=== PATIENT | male | born 1975 | race African-American/Black ===

== ENCOUNTER 2019-04-08 03:03 | Emergency (ER) | payer SELFPAY ==
[2019-04-08] MEDS ORDERED: NA CHLORIDE 0.9% 1,000 ML ONE (03:25)
[2019-04-08] MEDS ORDERED: ONDANSETRON 4 MG/2 ML VIAL ONE (03:25)
[2019-04-08] MEDS ORDERED: ALBUTEROL 2.5 MG/3 ML NEB SOL ONE (03:25)
[2019-04-08 04:05] LABS: Arterial Blood Carboxyhemoglob 4.1 % (0-1.5); Blood Gas Oxyhemoglobin 89.5 % (94-97); Blood O2 Saturation 94.3 % (92-98.5)
[2019-04-08 04:12] LABS: Absolute Lymphocytes (CBC) 4.8 K/uL (0.7-4.9); Basophils % 0.8 % (0-1.3); Hematocrit 39.4 % (39.6-49.0); Lymphocytes % 51.5 % (15.3-44.8); MPV 9.7 fL (7.6-11.3); RBC Red Blood Cell Count 4.08 M/uL (4.33-5.43)
[2019-04-08 04:19] LABS: BUN Blood Urea Nitrogen 19 mg/dL (7-18); Bicarbonate 24 mmol/L (21-32); Glucose Level 107 mg/dL (74-106); Potassium 3.9 mmol/L (3.5-5.1); Sodium Level 142 mmol/L (136-145)
[2019-04-08 04:53] LABS: Blood Morphology Comment NOT SEEN (NOT SEEN); Platelet Estimate ADEQ
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
--- NOTE | 2019-04-08 07:58 | RAD REPORT ---
EXAM DESCRIPTION: Ena Single View04/08/2019 3:34 am CLINICAL HISTORY: Cough COMPARISON: none FINDINGS: The lungs appear clear of acute infiltrate. The heart is normal size IMPRESSION: No acute abnormalities displayed
--- NOTE | 2019-04-09 15:53 | EKG ---
Test Date: 2019-04-08 Test Time: 03:04:38 Concrete Handler: ANTOINE MEASUREMENT RESULTS: Intervals: Rate: 98 KS: 134 QRSD: 74 QT: 310 QTc: 395 [place]: P: 68 KS: 134 QRS: 46 T: 51 INTERPRETIVE STATEMENTS: Normal sinus rhythm ST elevation, probably due to early repolarization Borderline ECG No previous ECG available for comparison Electronically Signed On 04-09-19 15:52:35 CDT by Shane Geller
== END 2019-04-08 05:34 | disposition home or self-care (01) ==
LOC: ER 03:03
DX: T58.8X1A Toxic effect of carbon monoxide from other source, accidental (unintentional), initial encounter (principal); Y92.89 Other specified places as the place of occurrence of the external cause; Z72.0 Tobacco use
CPT/HCPCS: 36415; 71045; 80048; 82805; 85025; 93005; 96374; 99284; J2405; J7030

== ENCOUNTER 2020-05-13 12:14 | Emergency (ER) | payer SELFPAY ==
--- NOTE | 2020-05-13 12:32 | EDPHYS ---
Physician Documentation [facility] Name: Saeed Pinzon Age: 44 yrs Sex: Male : 1975 Arrival Date: 05/13/2020 Time: 12:16 Bed 13 Private MD: ED Physician Deepak Shelby HPI: 05/12 12:51 This 44 yrs old Black Male presents to ER via Ambulatory with complaints of Ear pm1 swelling. 12:51 Onset: The symptoms/episode began/occurred 2 day(s) ago. Associated signs and symptoms: pm1 Pertinent positives: earache, Pertinent negatives: fever. Modifying factors: The patient symptoms are alleviated by nothing, the patient symptoms are aggravated by attempting to didi and nothing came out. The patient has not experienced similar symptoms in the past. The patient has not recently seen a physician. Patient presenting to the ER with complaints of left ear swelling. Patient concerned that he might have been bitten by something. His sister tried to express his ear because they thought that there might be some pus in it. No discharge or pus present. Historical: - Allergies: 05/13 12:33 No Known Allergies; ll1 - PMHx: 12:33 Asthma; Heart Murmur; hemorrhoids; Hypertension; ll1 - PSHx: 12:33 None; ll1 - Immunization history:: Flu vaccine is not up to date. - Social history:: Smoking status: Patient reports the use of cigarette tobacco products, denies chronic smoking, but will smoke occasionally, cigars. ROS: 05/12 12:51 Constitutional: Negative for fever, chills, and weight loss, Cardiovascular: Negative pm1 for chest pain, palpitations, and edema, Respiratory: Negative for shortness of breath, cough, wheezing, and pleuritic chest pain, Abdomen/GI: Negative for abdominal pain, nausea, vomiting, diarrhea, and constipation, MS/Extremity: Negative for injury and deformity, Skin: Negative for injury, rash, and discoloration, Neuro: Negative for headache, weakness, numbness, tingling, and seizure. Exam: 12:51 Constitutional: This is a well developed, well nourished patient who is awake, alert, pm1 and in no acute distress. Head/Face: Normocephalic, atraumatic. 12:51 Neck: Trachea midline, no thyromegaly or masses palpated, and no cervical lymphadenopathy. Supple, full range of motion without nuchal rigidity, or vertebral point tenderness. No Meningismus. 12:51 MS/ Extremity: Pulses equal, no cyanosis. Neurovascular intact. Full, normal range of motion. 12:51 ENT: External ear(s): cellulitis, that is minimal, of the pinna of left ear, needle aspiration without any drainage or pus, Ear canal(s): are normal, TM's: are normal, Examination of the other ear shows no obvious abnormality. 12:51 Cardiovascular: Exam negative for acute changes, Rate: normal, Rhythm: regular, Pulses: no pulse deficits are appreciated. 12:51 Respiratory: Exam negative for acute changes, respiratory distress, shortness of breath. 12:51 Neuro: Exam negative for acute changes, Orientation: is normal, Motor: is normal, moves all fours, Gait: is steady, at a normal pace, without difficulty. Vital Signs: 05/13 12:32 BP 127 / 89; Pulse 82; Resp 17; Temp 98.5; Pulse Ox 100% ; Pain 6/10; ll1 MDM: 12:22 Patient medically screened. pm1 12:31 Counseling: I had a detailed discussion with the patient and/or guardian regarding: the pm1 historical points, exam findings, and any diagnostic results supporting the discharge/admit diagnosis, the need for outpatient follow up, to return to the emergency department if symptoms worsen or persist or if there are any questions or concerns that arise at home. 12:56 Data reviewed: vital signs. Data interpreted: Pulse oximetry: on room air is 100 %. pm1 Interpretation:. Administered Medications: 12:45 Drug: Bactrim (160 mg-800 mg (DS) 1 tablet Route: PO; ll1 12:50 Follow up: Response: No adverse reaction; RASS: Alert and Calm (0) ll1 12:45 Drug: Tetanus-Diphtheria Toxoid Adult 0.5 ml {Line Camera Operator: [place]um. Exp: ll1 10/09/2022. Lot #: [id number]. } Route: IM; Site: left deltoid; 12:51 Follow up: Response: No adverse reaction; RASS: Alert and Calm (0) ll1 12:46 Drug: Ibuprofen 600 mg Route: PO; ll1 12:51 Follow up: Response: No adverse reaction; RASS: Alert and Calm (0) ll1 Disposition: 14:56 Co-signature as Attending Physician, Deepak Shelby MD I agree with the assessment and kdr plan of care. Disposition: 05/13/20 12:32 Discharged to Home. Impression: Cellulitis of left external ear. - Condition is Stable. - Discharge Instructions: Cellulitis, Adult. - Prescriptions for Bactrim DS 800- 160 mg Oral Tablet - take 1 tablet by ORAL route every 12 hours for 10 days; 20 tablet. - Medication Reconciliation Form, Thank You Letter, Antibiotic Education, Prescription Opioid Use form. - Follow up: Emergency Department; When: As needed; Reason: Worsening of condition. Follow up: Private Physician; When: 2 - 3 days; Reason: Recheck today's complaints, Continuance of care, Re-evaluation by your physician. - Problem is new. - Symptoms have improved. Signatures: Deepak Shelby MD MD kdr Bill Mcbride NP CHIEF OPERATOR pm1 Kenney Perez RN RN ll1 Corrections: (The following items were deleted from the chart) 12:51 12:32 05/13/2020 12:32 Discharged to Home. Impression: Cellulitis of left external ear. ll1 Condition is Stable. Forms are Medication Reconciliation Form, Thank You Letter, Antibiotic Education, Prescription Opioid Use. Follow up: Emergency Department; When: As needed; Reason: Worsening of condition. Follow up: Private Physician; When: 2 - 3 days; Reason: Recheck today's complaints, Continuance of care, Re-evaluation by your physician. Problem is new. Symptoms have improved. pm1
[2020-05-13] MEDS ORDERED: SMZ./TMP. 800/160 MG TABLET ONE (12:48)
[2020-05-13] MEDS ORDERED: TETANUS & DIPHTHERIA TOX,ADULT 0.5 ML VIAL ONE (12:49)
[2020-05-13] MEDS ORDERED: IBUPROFEN 400 MG TAB ONE (12:49)
--- NOTE | 2020-05-13 12:52 | ER ---
Nurse's Notes [facility] Name: Saeed Pinzon Age: 44 yrs Sex: Male : 1975 Arrival Date: 05/13/2020 Time: 12:16 Bed 13 Private MD: Diagnosis: Cellulitis of left external ear Presentation: 05/13 12:32 Chief complaint: Patient states: Left ear pain and swelling for 3 days. No fever. ll1 Coronavirus screen: Client denies travel out of the [place] in the last 14 days. At this time, the client does not indicate any symptoms associated with coronavirus-19. Ebola Screen: Patient denies travel to an Ebola-affected area in the 21 days before illness onset. Initial Sepsis Screen: Does the patient meet any 2 criteria? No. Patient's initial sepsis screen is negative. Risk Assessment: Do you want to hurt yourself or someone else? Patient reports no desire to harm self or others. Onset of symptoms was May 11, 2020. 12:32 Method Of Arrival: Ambulatory 1 12:32 Acuity: GERSON 4 ll1 12:33 Initial Sepsis Screen: Does the patient have a suspected source of infection? Yes: ll1 Other: left ear pain. Triage Assessment: 12:34 General: Appears in no apparent distress. Behavior is calm, cooperative. Pain: ll1 Complains of pain in L ear Pain currently is 6 out of 10 on a pain scale. Quality of pain is described as aching, Pain began 2-3 days ago. Historical: - Allergies: 12:33 No Known Allergies; ll1 - PMHx: 12:33 Asthma; Heart Murmur; hemorrhoids; Hypertension; ll1 - PSHx: 12:33 None; ll1 - Immunization history:: Flu vaccine is not up to date. - Social history:: Smoking status: Patient reports the use of cigarette tobacco products, denies chronic smoking, but will smoke occasionally, cigars. Screenin:33 Abuse screen: Denies threats or abuse. Nutritional screening: No deficits noted. ll1 Tuberculosis screening: No symptoms or risk factors identified. Fall Risk None identified. Total Roy Fall Scale indicates No Risk (0-24 pts). Vital Signs: 12:32 BP 127 / 89; Pulse 82; Resp 17; Temp 98.5; Pulse Ox 100% ; Pain 6/10; ll1 ED Course: 12:16 Patient arrived in ED. mr 12:22 Bill Mcbride, CRISTINA is PHCP. pm1 12:22 Deepak Shelby MD is Attending Physician. pm1 12:31 Kenney Perez, RN is Primary Nurse. ll1 12:32 Triage completed. ll1 12:32 Arm band placed on Patient placed in an exam room, on a stretcher. ll1 12:33 Patient has correct armband on for positive identification. Bed in low position. Call 1 light in reach. Side rails up X 1. Cardiac monitoring not applicable on this patient. Administered Medications: 12:45 Drug: Bactrim (160 mg-800 mg (DS) 1 tablet Route: PO; 1 12:50 Follow up: Response: No adverse reaction; RASS: Alert and Calm (0) 1 12:45 Drug: Tetanus-Diphtheria Toxoid Adult 0.5 ml {Factory Machine Computer Operator: [place]. Exp: 1 10/09/2022. Lot #: [id number]. } Route: IM; Site: left deltoid; 12:51 Follow up: Response: No adverse reaction; RASS: Alert and Calm (0) 1 12:46 Drug: Ibuprofen 600 mg Route: PO; ll1 12:51 Follow up: Response: No adverse reaction; RASS: Alert and Calm (0) [facility] Outcome: 12:32 Discharge ordered by . pm1 12:51 Patient left the ED. 1 Signatures: Bria Ram mr ReedBill, CRISTINA DIRECTOR RECORDS MANAGEMENT pm1 Kenney Perez, RN RN 1
[2020-05-13] MEDS ORDERED: IBUPROFEN 200 MG TAB PO ONE (12:53)
[2020-05-13 13:03] VITALS: BP 127/89; TEMP 98.5; O2SAT 100
== END 2020-05-13 12:51 | disposition home or self-care (01) ==
LOC: ER 12:14
DX: H60.12 Cellulitis of left external ear (principal); I10 Essential (primary) hypertension; F17.210 Nicotine dependence, cigarettes, uncomplicated; Z23 Encounter for immunization
CPT/HCPCS: 90471; 90714; 99282

== ENCOUNTER 2021-10-09 15:45 | Emergency (ER) | payer SELFPAY ==
--- NOTE | 2021-10-09 18:07 | ER ---
Nurse's Notes [facility] Name: Saeed Pinzon Age: 46 yrs Sex: Male : 1975 Arrival Date: 10/09/2021 Time: 15:53 Bed 15 Private MD: Diagnosis: Hordeolum internum right eye, unspecified eyelid Presentation: 10/09 16:18 Chief complaint: Patient states: he has a bump above his right eye that is causing ap3 pain. Patient reports having similar bumps in the past but they never hurt. Patient states this has been going on for approx 3 weeks. Coronavirus screen: At this time, the client does not indicate any symptoms associated with coronavirus-19. Ebola Screen: No symptoms or risks identified at this time. Mechanism of Injury: closed wound. The patient denies any loss of vision. Initial Sepsis Screen: Does the patient meet any 2 criteria? No. Patient's initial sepsis screen is negative. Does the patient have a suspected source of infection? No. Patient's initial sepsis screen is negative. Risk Assessment: Do you want to hurt yourself or someone else? Patient reports no desire to harm self or others. Onset of symptoms was September 17, 2021. 16:18 Method Of Arrival: Ambulatory ap3 16:18 Acuity: GERSON 4 ap3 Triage Assessment: 16:22 General: Appears in no apparent distress. Behavior is calm, cooperative, appropriate ap3 for age. Pain: Complains of pain in right supraorbital ridge. EENT: Lid(s) swelling noted. Neuro: Level of Consciousness is awake, alert, obeys commands, Oriented to person, place, time, situation, Appropriate for age Moves all extremities. Speech is normal. Cardiovascular: Patient's skin is warm and dry. Respiratory: Airway is patent Respiratory effort is even, unlabored. Historical: - Allergies: 16:21 No Known Allergies; ap3 - Home Meds: 16:21 None [Active]; ap3 - PMHx: 16:21 Asthma; Heart Murmur; hemorrhoids; Hypertension; ap3 - Immunization history:: Client reports having NOT received the Covid vaccine. Last tetanus immunization: up to date Flu vaccine is not up to date. - Social history:: Smoking status: Patient reports the use of cigarette tobacco products, cigars, 3-4 black and milds a day. - Family history:: not pertinent. Screenin:23 Abuse screen: Denies threats or abuse. Nutritional screening: No deficits noted. ap3 Tuberculosis screening: No symptoms or risk factors identified. Fall Risk No fall in past 12 months (0 pts). Assessment: 16:24 EENT: Eyes. ap3 17:10 General: Appears in no apparent distress. comfortable, slender, well groomed, Behavior cb5 is calm, cooperative, appropriate for age. Pain: Complains of pain in right eye and right supraorbital ridge Pain currently is 3 out of 10 on a pain scale. Neuro: No deficits noted. Cardiovascular: No deficits noted. Respiratory: No deficits noted. GI: No deficits noted. : No deficits noted. EENT: Sclera/Cornea pt c/o right eye pain . Derm: No deficits noted. Musculoskeletal: No deficits noted. 18:45 General: pt in a hurry to go home, declined for nurse to take vital signs. . cb5 Vital Signs: 16:18 BP 146 / 78; Pulse 65; Resp 17; Temp 98.8; Pulse Ox 96% ; Weight 72.57 kg; Height 5 ft. ap3 6 in. (167.64 cm); Pain 7/10; 16:18 Body Mass Index 25.82 (72.57 kg, 167.64 cm) ap3 ED Course: 15:53 Patient arrived in ED. am2 16:21 Triage completed. ap3 16:23 Arm band placed on left wrist. ap3 16:58 Joana Peraza MD is Attending Physician. ma2 17:03 Alexandria Gale, ZACH is Primary Nurse. cb5 17:40 Allergy band placed. Call light in reach. Side rails up X 1. cb5 17:40 No provider procedures requiring assistance completed. cb5 18:07 Obinna Ferrer MD is Referral Physician. ma2 Administered Medications: No medications were administered Outcome: 18:06 Discharge ordered by . ma2 18:45 Discharged to home ambulatory. cb5 18:45 Condition: stable 18:45 Discharge instructions given to patient. 18:56 Patient left the ED. cb5 Signatures: Sallie Smiley am2 Joana Peraza MD MD inSallie Lew RN RN ap3 Alexandria Gale, RN RN cb5
--- NOTE | 2021-10-09 18:07 | EDPHYS ---
Physician Documentation [facility] Name: Saeed Pinzon Age: 46 yrs Sex: Male : 1975 Arrival Date: 10/09/2021 Time: 15:53 Bed 15 Private MD: ED Physician Joana Peraza HPI: 10/09 18:03 This 46 yrs old Black Male presents to ER via Ambulatory with complaints of Pump above ma2 right eyelid. 18:03 Onset: The symptoms/episode began/occurred gradually, 1 month(s) ago. Associated signs ma2 and symptoms: Pertinent negatives: ear ache, headache. Severity of symptoms: At their worst the symptoms were mild in the emergency department the symptoms are unchanged. The patient has not experienced similar symptoms in the past. Historical: - Allergies: 16:21 No Known Allergies; ap3 - Home Meds: 16:21 None [Active]; ap3 - PMHx: 16:21 Asthma; Heart Murmur; hemorrhoids; Hypertension; ap3 - Immunization history:: Client reports having NOT received the Covid vaccine. Last tetanus immunization: up to date Flu vaccine is not up to date. - Social history:: Smoking status: Patient reports the use of cigarette tobacco products, cigars, 3-4 black and milds a day. - Family history:: not pertinent. ROS: 18:03 Constitutional: Negative for fever, chills, and weight loss. ma2 18:03 All other systems are negative. Exam: 18:03 Constitutional: This is a well developed, well nourished patient who is awake, alert, ma2 and in no acute distress. Head/Face: Normocephalic, atraumatic. Eyes: Right eyelid with 2 mm lump, soft nontender, no signs of induration or cellulitis, consistent with hordeolum/stye. Pupils equal round and reactive to light, extra-ocular motions intact. Lids and lashes normal. Conjunctiva and sclera are non-icteric and not injected. Cornea within normal limits. Periorbital areas with no swelling, redness, or edema. ENT: Nares patent. No nasal discharge, no septal abnormalities noted. Tympanic membranes are normal and external auditory canals are clear. Oropharynx with no redness, swelling, or masses, exudates, or evidence of obstruction, uvula midline. Mucous membranes moist. Neck: Trachea midline, no thyromegaly or masses palpated, and no cervical lymphadenopathy. Supple, full range of motion without nuchal rigidity, or vertebral point tenderness. No Meningismus. Chest/axilla: Normal chest wall appearance and motion. Nontender with no deformity. No lesions are appreciated. Cardiovascular: Regular rate and rhythm with a normal S1 and S2. No gallops, murmurs, or rubs. Normal PMI, no JVD. No pulse deficits. Respiratory: Lungs have equal breath sounds bilaterally, clear to auscultation and percussion. No rales, rhonchi or wheezes noted. No increased work of breathing, no retractions or nasal flaring. Abdomen/GI: Soft, non-tender, with normal bowel sounds. No distension or tympany. No guarding or rebound. No evidence of tenderness throughout. Back: No spinal tenderness. No costovertebral tenderness. Full range of motion. Vital Signs: 16:18 BP 146 / 78; Pulse 65; Resp 17; Temp 98.8; Pulse Ox 96% ; Weight 72.57 kg; Height 5 ft. ap3 6 in. (167.64 cm); Pain 7/10; 16:18 Body Mass Index 25.82 (72.57 kg, 167.64 cm) ap3 MDM: 18:03 Differential diagnosis: Style hordeolum unlikely abscess unlikely cellulitis unlikely. ma2 Data reviewed: vital signs, nurses notes. Counseling: I had a detailed discussion with the patient and/or guardian regarding: the historical points, exam findings, and any diagnostic results supporting the discharge/admit diagnosis, the presence of at least one elevated blood pressure reading (>120/80) during this emergency department visit, the need for outpatient follow up. Response to treatment: the patient's symptoms have markedly improved after treatment. 18:06 Patient medically screened. ma2 Administered Medications: No medications were administered Disposition Summary: 10/09/21 18:06 Discharge Ordered Location: Home ma2 Condition: Stable ma2 Diagnosis - Hordeolum internum right eye, unspecified eyelid ma2 Followup: ma2 - With: Private Physician - When: Tomorrow - Reason: If symptoms return Followup: ma2 - With: Obinna Ferrer MD - When: Tomorrow - Reason: If symptoms return, Continuance of care Discharge Instructions: - Discharge Summary Sheet ma2 - Stdesirae ma2 Forms: - Medication Reconciliation Form ma2 - Thank You Letter ma2 - Antibiotic Education ma2 - Prescription Opioid Use ma2 Prescriptions: - Augmentin 875-125 mg Oral Tablet - take 1 tablet by ORAL route every 12 hours for 10 days; 20 tablet; Refills: 0, ma2 Product Selection Permitted Signatures: Joana Peraza MD MD ma2 Sallie Quiroz RN RN ap3
[2021-10-09 19:44] VITALS: BP 146/78; TEMP 98.8; O2SAT 96
== END 2021-10-09 18:56 | disposition home or self-care (01) ==
LOC: ER 15:45
DX: H00.021 Hordeolum internum right upper eyelid (principal); F17.290 Nicotine dependence, other tobacco product, uncomplicated
CPT/HCPCS: 99281